=== PATIENT | female | born 1935 | race Caucasian/White ===

== ENCOUNTER 2020-12-06 16:15 | Observation (INO) ==
[2020-12-06] MEDS ORDERED: Acetaminophen 325 MG TABLET PO PRN (20:38)
[2020-12-06] MEDS ORDERED: Naloxone 0.4 MG/ML INJ IVP PRN (20:38)
[2020-12-06] MEDS ORDERED: Melatonin 3 MG TABLET PO PRN (20:38)
[2020-12-06] MEDS ORDERED: Ondansetron 4 MG/2 ML VIAL IVP PRN (20:38)
[2020-12-06] MEDS ORDERED: Perflutren Lipid Microsphere 1.3 ML in 0.9 % Sodium Chloride 8.7 ML IVP PRN (21:54)
[2020-12-06] MEDS ORDERED: *HR* LORazepam 0.5 MG TABLET PO PRN (22:21)
[2020-12-06] MEDS ORDERED: 0.9 % Sodium Chloride 1,000 ML IVC ONE (22:34)
[2020-12-07] MEDS ORDERED: *HR* Heparin 5,000 UNIT/ML VIAL SQ SCH (06:00)
[2020-12-07 06:13] LABS: Basophils % 0.4 %; Eosinophils % 0.6 %; Hematocrit 39.4 % (35.3-44.9); Hemoglobin 12.5 g/dL (11.5-15.4); Immature Granulocytes % 0.2 % (0-4); Lymphocytes # 1.1 K/mcL (0.6-4.6); Lymphocytes % 21.5 %; Mean Corpuscular HGB Conc 31.7 g/dL (31.6-35.5); Mean Corpuscular Hemoglobin 31.2 pg (28.0-33.3); Mean Corpuscular Volume 98.3 fL (83.0-100.0); Monocytes # 0.5 K/mcL (0.0-1.3); Monocytes % 9.1 %; Neutrophils # 3.5 K/mcL (1.6-8.9); Platelet Count 158 K/mcL (140-400); Red Blood Count 4.01 M/mcL (3.82-4.97); Red Cell Distribution Width 14.1 % (11.5-14.5); Segmented Neutrophils % 68.2 %; White Blood Count 5.2 K/mcL (4.3-11.1)
[2020-12-07 06:36] LABS: Alanine Aminotransferase 9 Units/L (7-52); Albumin 3.3 g/dL (3.5-5.7); Albumin/Globulin Ratio 1.3 (1.1-2.2); Alkaline Phosphatase 43 Units/L (34-104); Aspartate Amino Transferase 13 Units/L (13-39); BUN/Creatinine Ratio 30 (6-26); Blood Urea Nitrogen 19 mg/dL (8-23); Calcium 8.5 mg/dL (8.6-10.3); Carbon Dioxide 27 mEq/L (23-29); Chloride 111 mEq/L (98-107); Globulin 2.5 g/dL (2.4-3.5); Glucose 82 mg/dL (70-105); Osmolality,Calculated 295 (280-300); Phosphorous 3.4 mg/dL (2.7-4.5); Sodium 142 mEq/L (136-145); Total Protein 5.8 g/dL (6.4-8.9); eGFR For African Americans > 60 (> 60); eGFR For Non-African Americans > 60 (> 60)
[2020-12-07 06:38] LABS: Chol/HDL Ratio 2.6 (0-4.9); Cholesterol 151 mg/dL (< 200); HDL Cholesterol 58 mg/dL (40-59); LDL Cholesterol,Calculated 77 mg/dL (< 100); Triglycerides 78 mg/dL (< 150); Troponin I < 0.03 ng/mL (< 0.04)
[2020-12-07 10:24] LABS: Estimated Average Glucose 117 mg/dl; Hemoglobin A1C 5.7 %
[2020-12-07 11:15] VITALS: BP 146/63; PULSE 54; TEMP 97.5; O2SAT 97
== END 2020-12-07 15:12 | disposition home or self-care (01) ==
LOC: 3BNU → SUATTDRO 19:40
PROVIDERS: ADMIT Internal Medicine; ATTEND Registered Nurse